=== PATIENT | female | born 1945 | race Caucasian/White ===

== ENCOUNTER 2018-06-08 21:08 | Emergency (ER) | payer OTHER, MEDICARE ==
[2018-06-08 22:00] LABS: BASO % 0.5 % (0.0-1.0); EOS # 0.1 10^3/uL (0.0-0.50); EOS % 1.4 % (0.0-3.0); HEMATOCRIT 38.6 % (36.0-47.0); HEMOGLOBIN 13.3 g/dl (12.0-15.5); IMMATURE GRANULOCYTE % 0.3 % (0-3.0); LYMPH # 2.4 10^3/uL (1.5-4.5); LYMPH % 27.9 % (24.0-44.0); MEAN CORPUSCULAR HEMOGLOBIN 27.3 pg (27.0-33.0); MEAN CORPUSCULAR HGB CONC 34.5 g/dl (32.0-36.5); MEAN CORPUSCULAR VOLUME 79.1 fl (80.0-96.0); MONO # 0.5 10^3/uL (0.0-0.8); MONO % 5.8 % (0.0-5.0); NEUTROPHILS # 5.5 10^3/uL (1.8-7.7); NEUTROPHILS % 64.1 % (36.0-66.0); PLATELET COUNT, AUTOMATED 224 10^3/uL (150-450); RED BLOOD COUNT 4.88 10^6/uL (4.00-5.40); RED CELL DISTRIBUTION WIDTH 13.1 % (11.5-14.5); WHITE BLOOD COUNT 8.6 10^3/uL (4.0-10.0)
[2018-06-08] MEDS: LABETALOL HCL 100 MG/20 ML VIAL IV (22:16)
[2018-06-08 22:29] LABS: ANION GAP 11 MEQ/L (8-16); BLOOD UREA NITROGEN 20 MG/DL (7-18); CALCIUM LEVEL 9.2 MG/DL (8.8-10.2); CARBON DIOXIDE LEVEL 29 MEQ/L (21-32); CHLORIDE LEVEL 99 MEQ/L (98-107); CPK CREATINE PHOSPHOKINASE 92 U/L (26-192); CREATININE FOR GFR 1.14 MG/DL (0.55-1.30); FREE T4 1.12 NG/DL (0.76-1.46); GLOMERULAR FILTRATION RATE 49.9 (>39); GLUCOSE, FASTING 290 MG/DL (70-100); MB/CK RELATIVE INDEX 1.63 (< OR =4); POTASSIUM SERUM 3.9 MEQ/L (3.5-5.1); SODIUM LEVEL 139 MEQ/L (136-145); TROPONIN I < 0.02 NG/ML (< 0.10)
[2018-06-08 23:56] LABS: APPEARANCE, URINE CLOUDY (CLEAR); BACTERIA, URINE AUTO NEGATIVE (NEGATIVE); BILIRUBIN, URINE AUTO NEGATIVE (NEGATIVE); BLOOD, URINE BLOOD NEGATIVE (NEGATIVE); COLOR, URINE AMBER (YELLOW); GLUCOSE, URINE (UA) AUTO 3+ mg/dL (NEGATIVE); KETONE, URINE AUTO 1+ mg/dL (NEGATIVE); LEUKOCYTE ESTERASE, URINE AUTO 1+ (NEGATIVE); MUCUS, URINE SMALL (NEGATIVE); NITRITE, URINE AUTO NEGATIVE (NEGATIVE); PROTEIN, URINE AUTO NEGATIVE (NEGATIVE); RBC, URINE AUTO 3 /HPF (0-3); SPECIFIC GRAVITY URINE AUTO 1.022 (1.002-1.035); SQUAMOUS EPITHELIAL CELL UR AU 1 /HPF (0-6); UROBILINOGEN, URINE AUTO 0.2 mg/dL (0.0-2.0); WBC, URINE AUTO 2 /HPF (0-3)
[2018-06-09] MEDS: LABETALOL 100 MG TAB PO (00:20)
== END 2018-06-09 00:25 | disposition home or self-care (01) ==
LOC: M ED 06-09 00:25
DX: I10 Essential (primary) hypertension (principal); E11.9 Type 2 diabetes mellitus without complications; Z79.84 Long term (current) use of oral hypoglycemic drugs; Z79.899 Other long term (current) drug therapy
CPT/HCPCS: 71046

== ENCOUNTER 2020-11-04 12:37 | Observation (INO) | payer OTHER ==
[~2020-11-04] VITALS: Ht 157.5 cm; Wt 90.4 kg
[~2020-11-04 12:37] MED LIST: ATOR1TAB21 PO; GLYB5TAB6 PO; HYDR-3490 PO; JANU100T PO; LABE100T4 PO; LEVO50TA5 PO; METF10004 PO; METO1TAB7 PO; PARO40TA2 PO; QUET50TA3 PO; QUIN1TAB3 PO
[2020-11-04] MEDS ORDERED: AMLO1TAB25 PO (12:54)
[2020-11-04 13:23] LABS: VENOUS BASE EXCESS 3.4 (-2.0-2.0); VENOUS HCO3 26.5 MEQ/L (23.0-27.0); VENOUS O2 SATURATION 96.6 % (60.0-80.0); VENOUS PARTIAL PRESSURE CO2 34.7 mmHg (38.0-50.0); VENOUS PARTIAL PRESSURE O2 83.2 mmHg (30.0-50.0); VENOUS STANDARD HCO3 27.5 MEQ/L; VENOUS TOTAL CO2 27.5 MEQ/L (24.0-28.0)
[2020-11-04 13:41] LABS: BASO % 0.1 % (0.0-1.0); EOS % 0.2 % (0.0-3.0); LYMPH # 1.1 10^3/uL (1.5-5.0); LYMPH % 11.2 % (24.0-44.0); MEAN CORPUSCULAR HEMOGLOBIN 25.2 pg (27.0-33.0); MEAN CORPUSCULAR HGB CONC 33.3 g/dl (32.0-36.5); MEAN CORPUSCULAR VOLUME 75.5 fl (80.0-96.0); MONO # 0.8 10^3/uL (0.0-0.8); MONO % 8.1 % (2.0-8.0); NEUTROPHILS # 7.7 10^3/uL (1.5-8.5); NEUTROPHILS % 79.8 % (36.0-66.0); PLATELET COUNT, AUTOMATED 286 10^3/uL (150-450); RED BLOOD COUNT 4.37 10^6/uL (4.00-5.40); WHITE BLOOD COUNT 9.6 10^3/uL (4.0-10.0)
--- NOTE | 2020-11-04 13:49 | REP ---
INDICATION: DYSPNEA/COUGH. COMPARISON: Comparison chest x-ray 06/08/2018. TECHNIQUE: Portable upright AP chest radiograph. FINDINGS: EKG monitoring electrodes are seen. There is chronic pleuroparenchymal thickening at the left base at the cardiac apex. This is unchanged. There is some chronic pleural thickening at the right base. There is increased alveolar density in the periphery of the upper lobes bilaterally question peripheral infiltrate/pneumonia. There are clips in right upper quadrant of the abdomen. Heart is not felt to be enlarged.. IMPRESSION: Bilateral upper lobe peripheral infiltrate suspected consistent with pneumonia. Question viral pneumonia.. <Electronically signed by Destin Woodward > 11/04/20 [id number]
[2020-11-04 14:07] LABS: ALBUMIN 3.3 GM/DL (3.2-5.2); ALT/SGPT 52 U/L (12-78); BILIRUBIN,DIRECT 0.4 MG/DL (0.0-0.2); BILIRUBIN,TOTAL 1.3 MG/DL (0.2-1.0); BLOOD UREA NITROGEN 18 MG/DL (7-18); CALCIUM LEVEL 9.1 MG/DL (8.8-10.2); CARBON DIOXIDE LEVEL 27 MEQ/L (21-32); CHLORIDE LEVEL 98 MEQ/L (98-107); CK-MB VALUE MASS 1.6 NG/ML (<3.6); CPK CREATINE PHOSPHOKINASE 113 U/L (26-192); CREATININE FOR GFR 0.91 MG/DL (0.55-1.30); GLOMERULAR FILTRATION RATE > 60.0 (>39); GLUCOSE, FASTING 125 MG/DL (70-100); MB/CK RELATIVE INDEX 1.42 (< OR =4); NT-PRO BNP 123 PG/ML (<125); POTASSIUM SERUM 3.3 MEQ/L (3.5-5.1); SODIUM LEVEL 134 MEQ/L (136-145); THYROXINE (T4) 9.2 UG/DL (4.5-12.0); TOTAL PROTEIN 6.8 GM/DL (6.4-8.2); TROPONIN I < 0.02 NG/ML (< 0.10)
[2020-11-04] MEDS ORDERED: NS 250 ML IV ONE (14:25)
[2020-11-04] MEDS ORDERED: ACETAMINOPHEN 325 MG TAB PO ONE (14:25)
[2020-11-04] MEDS: COMBIVENT RESPIMAT 100-20MCG INHALER 4GM INH SCH ×3 (14:42→15:05)
[2020-11-04] MEDS ORDERED: GLUCOSE 4GM CHEW TABLET PO PRN (15:30)
[2020-11-04] MEDS ORDERED: GLUCAGON INJ 1MG VIAL SC PRN (15:30)
[2020-11-04] MEDS ORDERED: DEXTROSE 50% 50 ML SYRINGE IV PRN (15:30)
[2020-11-04] MEDS ORDERED: ALBUTEROL 90 MCG/ACT 8GM HFA INHALER INH PRN (15:30)
[2020-11-04] MEDS ORDERED: ISOVUE-370 76% 100ML VIAL As Ordered ONE (15:43)
[2020-11-04] MEDS ORDERED: SERO50TA PO (15:53)
[2020-11-04] MEDS ORDERED: LABE100T4 PO (15:53)
[2020-11-04] MEDS ORDERED: HYDR50TAB PO (15:53)
[2020-11-04] MEDS ORDERED: LEVE1INJ5 SC (15:53)
--- NOTE | 2020-11-04 15:55 | HPEPDOC ---
General Date of Admission 11/04/20 Date of Service: November 04, 2020 Chief Complaint The patient is a 75-year-old female admitted with a reason for visit of Sob, Nausea. Source: Patient, RN/MD History of Present Illness 75-year-old female with past medical history of diabetes, hypertension, hypothyroid, anxiety, depression. Has been sick for 2 weeks with malaise, body aches, chills and shakiness .She was diagnosed with the COVID on October 23. , She was having increasing weakness and increasing shortness of breath and she felt that her heart was pounding when she was doing minimal exertion. She was also having persistent diarrhea about 4-5 times a day, so came to the emergency room for evaluation. In the ED she was found to have a temperature of 101. A chest x- ray was suggestive of bilateral upper lobe infiltrates, possible a pneumonia. ABG showed respiratory alkalosis. Patient was admitted for possible pneumonia. Home Medications Scheduled Amlodipine Besylate (Amlodipine Besylate) 10 Mg Tablet, 1 TAB PO DAILY, (Re ported) Glyburide (Glyburide) 5 Mg Tab, 5 MG PO BID, (Reported) Labetalol HCl (Labetalol HCl) 100 Mg Tab, 1 TAB PO BID Metformin HCl (Metformin HCl) 1,000 Mg Tab, 1,000 MG PO BID, (Reported) Miscellaneous Medications Atorvastatin Calcium (Atorvastatin Calcium) 20 Mg Tab, 20 MG PO, (Reported) Hydrochlorothiazide (Hydrochlorothiazide) 25 Mg Tab, 25 MG PO, (Reported) Levothyroxine Sodium (Levothyroxine Sodium) 50 Mcg Tab, 50 MCG PO, (Reported) Paroxetine HCl (Paroxetine HCl) 40 Mg Tab, 40 MG PO, (Reported) Quinapril Hcl (Quinapril HCl) 20 Mg Tab, 20 MG PO, (Reported) Sitagliptin Phosphate (Januvia) 100 Mg Tab, 100 MG PO, (Reported) Allergies Coded Allergies: No Known Allergies (Unverified , 06/08/18) Past Medical History Medical History DM, HTN, Obesity, Hypothyroid, Surgical History Cholecystectomy Family History Mother : DM , HTN, CAD Father : Kidney dis Brother : prostate ca, HTN, DM Sister : uterine ca, DM Social History * Smoker: Denies Alcohol: rarely A-FIB/CHADSVASC A-FIB History Current/History of A-Fib/PAF?: No Review of Systems Constitutional: Reports: Malaise, Weakness Eyes: Denies: Pain, Vision change ENT: Denies: Head Aches, Ear Pain, Dysphagia Skin: Denies: Rash, Lesions, Breakdown Pulmonary: Reports: Dyspnea; Denies: Cough Cardiovascular: Reports: Palpitations Gastrointestinal: Reports: Nausea, Diarrhea; Denies: Vomiting, Abdominal Pain Genitourinary: Denies: Dysuria, Frequency, Incontinence, Retention Physical Examination General Exam: Positive: Alert, Cooperative, No Acute Distress Eye Exam: Positive: PERRLA, Conjunctiva & lids normal, EOMI; Negative: Sclera icteric ENT Exam: Positive: Atraumatic, Mucous membr. moist/pink, Pharynx Normal Neck Exam: Positive: Supple; Negative: JVD, thyromegaly Chest Exam: Positive: Normal air movement, Other (bilateral crackes) Heart Exam: Positive: Rate Normal, Regular Rhythm, Normal S1, Normal S2; Negative: Murmurs, Rubs Telemetry: Positive: No significant arrhythmia Abdomen Exam: Positive: Normal bowel sounds, Soft; Negative: Tenderness, Hepatospenomegaly Extremity Exam: Negative: Clubbing, Cyanosis, Edema Vital Signs Vital Signs Date Time Temp Pulse Resp B/P (MAP) Pulse Ox O2 Delivery O2 Flow Rate FiO2 11/04/20 13:41 11/04/20 13:41 Room Air 11/04/20 12:38 101.0 74 20 92 Laboratory Data Labs 24H Laboratory Tests 2 11/04/20 13:01: Immature Granulocyte % (Auto) 0.6, Neutrophils (%) (Auto) 79.8H, Lymphocytes (%) (Auto) 11.2L, Monocytes (%) (Auto) 8.1H, Eosinophils (%) (Auto) 0.2, Basophils (%) (Auto) 0.1, Neutrophils # (Auto) 7.7, Lymphocytes # (Auto) 1.1L, Monocytes # (Auto) 0.8, Eosinophils # (Auto) 0.0, Basophils # (Auto) 0.0, Nucleated Red Blood Cells % (auto) 0.0, Anion Gap 9, Glomerular Filtration Rate > 60.0, Lactic Acid Level 1.7, Calcium Level 9.1, Total Bilirubin 1.3H, Direct Bilirubin 0.4H, Aspartate Amino Transf (AST/SGOT) 60H, Alanine Aminotransferase (ALT/SGPT) 52, Alkaline Phosphatase 60, Total Creatine Kinase 113, Creatine Kinase MB 1.6, Creatine Kinase MB Relative Index 1.42, Troponin I < 0.02, XV-Jnp-O-Type Natriuretic Peptide 123, Total Protein 6.8, Albumin 3.3, Albumin/Globulin Ratio 0.9L, Thyroid Stimulating Hormone (TSH) 2.310, Thyroxine (T4) 9.2 11/04/20 13:04: Blood Gas Bicarbonate Standard 27.5, Venous Blood pH 7.500H, Venous Blood Partial Pressure CO2 34.7L, Venous Blood Partial Pressure O2 83.2H, Venous Blood Total Carbon Dioxide 27.5, Venous Blood HCO3 26.5, Venous Blood Oxygen Saturation 96.6H, Venous Blood Base Excess 3.4H CBC/BMP Laboratory Tests 11/04/20 13:01 Microbiology Microbiology 11/04/20 Blood Culture, Received Pending Assessment/Plan 75-year-old female with past medical history of diabetes, hypertension, hypothyroid, anxiety, depression. Has been sick for 2 weeks with malaise, body aches, chills and shakiness .She was diagnosed with the COVID on October 23. , She was having increasing weakness and increasing shortness of breath and she felt that her heart was pounding when she was doing minimal exertion. She was also having persistent diarrhea about 4-5 times a day, so came to the emergency room for evaluation. In the ED she was found to have a temperature of 101. A chest x- ray was suggestive of bilateral upper lobe infiltrates, possible a pneumonia. ABG showed respiratory alkalosis. Patient was admitted for possible pneumonia. Covid pneumonia versus bacterial pneumonia Will check pro-calcitonin [place], start the patient on levofloxacin Patient is not hypoxic at present Oxygen as needed, albuterol when necessary Respiratory alkalosis and tachypnea on presentation Will get CT in November of the chest to rule out PE Diabetes Lispro per sliding scale Hold oral home diabetic medications FS AC and HS Hypothyroid Continue Synthroid Hypertension We'll continue to monitor and add home medications as needed Microcytic anemia Patient may have iron deficiency Hyperlipidemia Continue statin Plan / VTE VTE Prophylaxis Ordered?: Yes PAPA ALATORRE MD November 04, 2020 15:03
[2020-11-04] MEDS ORDERED: POTASSIUM CHLORIDE 10 MEQ SR TABLET PO ONE (16:00)
[2020-11-04] MEDS ORDERED: NS 500 ML IV ONE (16:00)
--- NOTE | 2020-11-04 16:34 | REP ---
INDICATION: pulmonary embolism COMPARISON: None. TECHNIQUE: CT angiography chest after the intravenous administration of 100 cc Isovue 370 attention pulmonary arteries. FINDINGS: There is excellent visualization of the pulmonary arterial vasculature. There are no focal filling defects present that would be considered consistent with acute pulmonary emboli. There no pleural or pericardial effusions. There is no mediastinal or hilar adenopathy. The imaged upper abdomen and imaged osseous structures are within normal limits. Evaluation of the lung escalante shows patchy bilateral airspace opacities with peripheral predominance. This CT height is significant nodule. There is respiratory motion artifact obscuring the detail. IMPRESSION: 1. There is no evidence of an acute pulmonary embolus. 2. Bilateral airspace opacities as described above suspicious for infectious etiology. Since are no priors comparison short interval follow-up is suggested. 3. Other findings and limitations as described above. <Electronically signed by Agustin Caicedo > 11/04/20 [id number]
[2020-11-04 16:47] LABS: C REACTIVE PROTEIN QUANTITATIV 8.29 MG/DL (0.00-0.30)
[2020-11-04] MEDS ORDERED: ACETAMINOPHEN TAB 650MG DOSE (2X325MG) PO PRN (16:55)
[2020-11-04] MEDS ORDERED: dexameTHASONE 20MG/5ML VIAL (J1100 PER 1MG) IV ONE (17:00)
[2020-11-04 17:18] LABS: INR 1.23; PROTHROMBIN TIME 15.8 SECONDS (12.5-14.3)
[2020-11-04 17:19] LABS: PARTIAL THROMBOPLASTIN TIME 31.2 SECONDS (24.2-38.5)
[2020-11-04 17:21] VITALS: BP 165/76
[2020-11-04] MEDS: HumaLOG INSULIN (NovoLOG) PER UNIT SC SCH ×2 (17:30→20:21)
[2020-11-04] MEDS: ASPIRIN 81MG ENTERIC TABLET PO SCH (17:54)
[2020-11-04] MEDS ORDERED: LevoFLOXacin 750 MG TABLET PO SCH ×2 (18:00)
[2020-11-04 19:28] VITALS: BP 148/67
--- NOTE | 2020-11-04 20:11 | ECGEPIP ---
[facility] - ED Test Date: 2020-11-04 Pat Name: JOHNNY VERDUZCO Department: Room: - Gender: Female [place]ip[place] Man: LR : 1945 Requested By: MUKESH Ramirez Order Number: [id number] Reading MD: Juan Manuel Valladares Measurements Intervals [place] Rate: 71 P: 29 RI: 158 QRS: -19 QRSD: 86 T: 67 QT: 422 QTc: 458 Interpretive Statements Normal sinus rhythm BASELINE ARTIFACT AFFECTS INTERPRETATION Electronically Signed on 11-04-2020 20:11:06 EDT by Juan Manuel Valladares
[2020-11-04] MEDS: LEVEMIR (INSULIN DETEMIR) 1 UNITS/0.01ML SC SCH (20:22)
[2020-11-04] MEDS: QUEtiapine FUMARATE 50MG TAB PO SCH (20:24)
[2020-11-04] MEDS: PANTOPRAZOLE 40MG TAB (PROTONIX) PO SCH (20:24)
[2020-11-04] MEDS: ALBUTEROL 90 MCG/ACT 8GM HFA INHALER INH SCH (20:28)
[2020-11-05 04:13] VITALS: BP_SYST 152; BP_SYST 160; BP_DIAS 59; BP_DIAS 72
[2020-11-05] MEDS: LEVOTHYROXINE 50MCG TABLET (0.05MG) PO SCH (05:33)
[2020-11-05] MEDS: ALBUTEROL 90 MCG/ACT 8GM HFA INHALER INH SCH ×3 (07:58→20:09)
[2020-11-05] MEDS: ASPIRIN 81MG ENTERIC TABLET PO SCH (08:16)
[2020-11-05] MEDS: LEVEMIR (INSULIN DETEMIR) 1 UNITS/0.01ML SC SCH (08:16)
[2020-11-05] MEDS: HumaLOG INSULIN (NovoLOG) PER UNIT SC SCH ×4 (08:17→21:05)
[2020-11-05 08:19] VITALS: BP 155/68
[2020-11-05 08:27] LABS: ALBUMIN 2.9 GM/DL (3.2-5.2); ALT/SGPT 49 U/L (12-78); BILIRUBIN,TOTAL 1.2 MG/DL (0.2-1.0); BLOOD UREA NITROGEN 18 MG/DL (7-18); CALCIUM LEVEL 8.8 MG/DL (8.8-10.2); CARBON DIOXIDE LEVEL 28 MEQ/L (21-32); CHLORIDE LEVEL 100 MEQ/L (98-107); CREATININE FOR GFR 0.88 MG/DL (0.55-1.30); GLOMERULAR FILTRATION RATE > 60.0 (>39); GLUCOSE, FASTING 298 MG/DL (70-100); POTASSIUM SERUM 4.1 MEQ/L (3.5-5.1); SODIUM LEVEL 136 MEQ/L (136-145); TOTAL PROTEIN 6.8 GM/DL (6.4-8.2)
[2020-11-05] MEDS: ENOXAPARIN 40MG/0.4ML SYRINGE (J1650 PER 10MG) SC SCH (12:06)
--- NOTE | 2020-11-05 14:24 | IPNPDOC ---
Subjective Date Seen The patient was seen on 11/05/20. Subjective Chief Complaint/HPI Feels a little better today. Patietn is desaturing on mild exertion needing 2 L of oxygen. Objective Physical Examination General Exam: Positive: Alert, Cooperative, No Acute Distress Eye Exam: Positive: PERRLA, Conjunctiva & lids normal, EOMI; Negative: Sclera icteric ENT Exam: Positive: Atraumatic, Mucous membr. moist/pink, Pharynx Normal Neck Exam: Positive: Supple; Negative: JVD, thyromegaly Chest Exam: Positive: Normal air movement, Other (bilateral crackes) Heart Exam: Positive: Rate Normal, Regular Rhythm, Normal S1, Normal S2; Negative: Murmurs, Rubs Telemetry: Positive: No significant arrhythmia Abdomen Exam: Positive: Normal bowel sounds, Soft; Negative: Tenderness, Hepatospenomegaly Extremity Exam: Negative: Clubbing, Cyanosis, Edema Assessment /Plan Assessment 75-year-old female with past medical history of diabetes, hypertension, hypothyroid, anxiety, depression. Has been sick for 2 weeks with malaise, body aches, chills and shakiness .She was diagnosed with the COVID on October 23. , She was having increasing weakness and increasing shortness of breath and she felt that her heart was pounding when she was doing minimal exertion. She was also having persistent diarrhea about 4-5 times a day, so came to the emergency room for evaluation. In the ED she was found to have a temperature of 101. A chest x- ray was suggestive of bilateral upper lobe infiltrates, possible a pneumonia. ABG showed respiratory alkalosis. Patient was admitted for possible pneumonia. Covid pneumonia versus bacterial pneumonia with hypoxia Pro-calcitonin not elevated will dc levofloxacin. Continue Dexamethasone. Oxygen as needed, albuterol when necessary incentive spirometry. Respiratory alkalosis and tachypnea on presentation No Pulmonary embolism in CT Chest. CT Evaluation of the lung escalante shows patchy bilateral airspace opacities with peripheral predominance. Diabetes Lispro per sliding scale, Levemir Hold oral home diabetic medications FS AC and HS Hypothyroid Continue Synthroid Hypertension We'll continue to monitor and add home medications as needed Microcytic anemia Patient may have iron deficiency Hyperlipidemia Continue statin Plan/VTE VTE Prophylaxis Ordered?: Yes VS, I&O, 24H, Fishbone Vital Signs/I&O Vital Signs Date Time Temp Pulse Resp B/P (MAP) Pulse Ox O2 Delivery O2 Flow Rate FiO2 11/05/20 08:19 99.5 90 18 155/68 (97) 96 Nasal Cannula 2.0 I&O- Last 24 Hours up to 6 AM 11/05/20 06:00 Intake Total 870 ml Output Total 200 ml Balance 670 ml Laboratory Data 24H LABS Laboratory Tests 2 11/04/20 15:56: Prothrombin Time 15.8H, Prothromb Time International Ratio 1.23, Activated Partial Thromboplast Time 31.2, Ferritin 218, C-Reactive Protein, Quantitative 8.29H, Procalcitonin 0.07 11/04/20 17:39: Bedside Glucose (Misc Panel) 69L 11/04/20 19:42: Bedside Glucose (Misc Panel) 148H 11/05/20 07:07: Bedside Glucose (Misc Panel) 302H 11/05/20 07:17: Anion Gap 8, Glomerular Filtration Rate > 60.0, Calcium Level 8.8, Total Bilirubin 1.2H, Aspartate Amino Transf (AST/SGOT) 45H, Alanine Aminotransferase (ALT/SGPT) 49, Alkaline Phosphatase 61, Total Protein 6.8, Albumin 2.9L, Albumin/Globulin Ratio 0.7L 11/05/20 11:45: Bedside Glucose (Misc Panel) 294H CBC/BMP Laboratory Tests 11/05/20 07:17 Microbiology Microbiology 11/04/20 Blood Culture, Received Pending 11/04/20 Blood Culture - Preliminary, Resulted No growth after 24 hours . All specim... PAPA ALATORRE MD November 05, 2020 14:24
[2020-11-05 14:40] VITALS: BP 151/59
[2020-11-05] MEDS: PARoxetine 20MG TABLET PO SCH (14:55)
[2020-11-05] MEDS: dexameTHASONE 20MG/5ML VIAL (J1100 PER 1MG) IV SCH (14:56)
[2020-11-05 15:45] VITALS: BP 157/57
[2020-11-05 20:54] VITALS: BP 173/74
[2020-11-05] MEDS ORDERED: LEVEMIR (INSULIN DETEMIR) 1 UNITS/0.01ML SC SCH (21:00)
[2020-11-05] MEDS: PANTOPRAZOLE 40MG TAB (PROTONIX) PO SCH (21:04)
[2020-11-05] MEDS: QUEtiapine FUMARATE 50MG TAB PO SCH (21:04)
[2020-11-05 21:15] VITALS: BP 160/68
[2020-11-06 05:32] VITALS: BP 154/74
[2020-11-06] MEDS: LEVOTHYROXINE 50MCG TABLET (0.05MG) PO SCH (05:35)
[2020-11-06] MEDS: HumaLOG INSULIN (NovoLOG) PER UNIT SC SCH ×2 (07:30→11:20)
[2020-11-06] MEDS: LEVEMIR (INSULIN DETEMIR) 1 UNITS/0.01ML SC ONE ×2 (08:30→11:30)
[2020-11-06] MEDS: dexameTHASONE 20MG/5ML VIAL (J1100 PER 1MG) IV SCH (08:31)
[2020-11-06] MEDS: ASPIRIN 81MG ENTERIC TABLET PO SCH (08:31)
[2020-11-06 08:32] VITALS: BP 157/74
[2020-11-06] MEDS ORDERED: DEXA6TAB PO (08:32)
[2020-11-06] MEDS: ENOXAPARIN 40MG/0.4ML SYRINGE (J1650 PER 10MG) SC SCH (08:32)
[2020-11-06] MEDS ORDERED: ASPI-551 PO (08:32)
[2020-11-06] MEDS: ALBUTEROL 90 MCG/ACT 8GM HFA INHALER INH SCH (08:35)
[2020-11-06] MEDS ORDERED: SITagliptin 50 MG TAB (JANUVIA) PO SCH (09:00)
[2020-11-06] MEDS ORDERED: LABETALOL 100MG TAB PO SCH (09:00)
[2020-11-06 09:42] LABS: BASO % 0.2 % (0.0-1.0); EOS % 0.1 % (0.0-3.0); HEMATOCRIT 35.5 % (36.0-47.0); HEMOGLOBIN 11.6 g/dl (12.0-15.5); LYMPH # 1.2 10^3/uL (1.5-5.0); LYMPH % 10.8 % (24.0-44.0); MEAN CORPUSCULAR HEMOGLOBIN 25.1 pg (27.0-33.0); MEAN CORPUSCULAR HGB CONC 32.7 g/dl (32.0-36.5); MEAN CORPUSCULAR VOLUME 76.7 fl (80.0-96.0); MONO # 0.8 10^3/uL (0.0-0.8); NEUTROPHILS # 9.1 10^3/uL (1.5-8.5); NEUTROPHILS % 80.9 % (36.0-66.0); PLATELET COUNT, AUTOMATED 377 10^3/uL (150-450); RED BLOOD COUNT 4.63 10^6/uL (4.00-5.40); WHITE BLOOD COUNT 11.2 10^3/uL (4.0-10.0)
[2020-11-06 09:54] LABS: INR 1.21; PROTHROMBIN TIME 15.6 SECONDS (12.5-14.3)
[2020-11-06 09:55] LABS: PARTIAL THROMBOPLASTIN TIME 30.3 SECONDS (24.2-38.5)
[2020-11-06 10:15] LABS: ALBUMIN 3.1 GM/DL (3.2-5.2); ALT/SGPT 52 U/L (12-78); BLOOD UREA NITROGEN 16 MG/DL (7-18); CARBON DIOXIDE LEVEL 26 MEQ/L (21-32); CHLORIDE LEVEL 104 MEQ/L (98-107); CPK CREATINE PHOSPHOKINASE 104 U/L (26-192); CREATININE FOR GFR 0.91 MG/DL (0.55-1.30); GLOMERULAR FILTRATION RATE > 60.0 (>39); GLUCOSE, FASTING 238 MG/DL (70-100); LDH LACTATE DEHYDROGENASE 329 U/L (84-246); SODIUM LEVEL 137 MEQ/L (136-145); TOTAL PROTEIN 6.9 GM/DL (6.4-8.2)
[2020-11-06] MEDS ORDERED: VENTAER INH (12:18)
--- NOTE | 2020-11-06 12:22 | IPNPDOC ---
Subjective Date Seen The patient was seen on 11/06/20. Subjective Chief Complaint/HPI Feels well. Has been off oxygen . Has worked with PT with no desaturations and no dyspnea. Objective Physical Examination General Exam: Positive: Alert, Cooperative, No Acute Distress Eye Exam: Positive: PERRLA, Conjunctiva & lids normal, EOMI; Negative: Sclera icteric ENT Exam: Positive: Atraumatic, Mucous membr. moist/pink, Pharynx Normal Neck Exam: Positive: Supple; Negative: JVD, thyromegaly Chest Exam: Positive: Normal air movement, Other (bilateral crackes) Heart Exam: Positive: Rate Normal, Regular Rhythm, Normal S1, Normal S2; Negative: Murmurs, Rubs Telemetry: Positive: No significant arrhythmia Abdomen Exam: Positive: Normal bowel sounds, Soft; Negative: Tenderness, Hepatospenomegaly Extremity Exam: Negative: Clubbing, Cyanosis, Edema Assessment /Plan Assessment 75-year-old female with past medical history of diabetes, hypertension, hypothyroid, anxiety, depression. Has been sick for 2 weeks with malaise, body aches, chills and shakiness .She was diagnosed with the COVID on October 23. , She was having increasing weakness and increasing shortness of breath and she felt that her heart was pounding when she was doing minimal exertion. She was also having persistent diarrhea about 4-5 times a day, so came to the emergency room for evaluation. In the ED she was found to have a temperature of 101. A chest x- ray was suggestive of bilateral upper lobe infiltrates, possible a pneumonia. ABG showed respiratory alkalosis. Patient was admitted for possible pneumonia. Covid pneumonia with hypoxia Pro-calcitonin not elevated Continue Dexamethasone. incentive spirometry. Respiratory alkalosis and tachypnea on presentation No Pulmonary embolism in CT Chest. CT Evaluation of the lung escalante shows patchy bilateral airspace opacities with peripheral predominance. Diabetes restart home medications of metformin, glyburide, januvia and long acting insulin. Hypothyroid Continue Synthroid Hypertension will restart home meds of labetelol, HCTZ, amlodipine and quinapril. Microcytic anemia Patient may have iron deficiency follow up with PMD Hyperlipidemia Continue statin Anxiety continue paroxetine and quetiapine. Dispo: Home with services. Plan/VTE VTE Prophylaxis Ordered?: Yes VS, I&O, 24H, Fishbone Vital Signs/I&O Vital Signs Date Time Temp Pulse Resp B/P (MAP) Pulse Ox O2 Delivery O2 Flow Rate FiO2 11/06/20 08:32 82 157/74 11/06/20 05:32 97.9 20 95 Nasal Cannula 1.0 I&O- Last 24 Hours up to 6 AM 11/06/20 06:00 Intake Total 1040 ml Balance 1040 ml Laboratory Data 24H LABS Laboratory Tests 2 11/05/20 15:49: Bedside Glucose (Misc Panel) 217H 11/05/20 16:54: Bedside Glucose (Misc Panel) 230H 11/05/20 20:54: Bedside Glucose (Misc Panel) 288H 11/06/20 05:34: Bedside Glucose (Misc Panel) 253H 11/06/20 09:15: Immature Granulocyte % (Auto) 1.0, Neutrophils (%) (Auto) 80.9H, Lymphocytes (%) (Auto) 10.8L, Monocytes (%) (Auto) 7.0, Eosinophils (%) (Auto) 0.1, Basophils (%) (Auto) 0.2, Neutrophils # (Auto) 9.1H, Lymphocytes # (Auto) 1.2L, Monocytes # (Auto) 0.8, Eosinophils # (Auto) 0.0, Basophils # (Auto) 0.0, Nucleated Red Blood Cells % (auto) 0.0, Prothrombin Time 15.6H, Prothromb Time International Ratio 1.21, Activated Partial Thromboplast Time 30.3, Anion Gap 7L, Glomerular Filtration Rate > 60.0, Calcium Level 9.0, Total Bilirubin 1.0, Aspartate Amino Transf (AST/SGOT) 43H, Alanine Aminotransferase (ALT/SGPT) 52, Alkaline Phosphatase 64, Lactate Dehydrogenase 329H, Total Creatine Kinase 104, C- Reactive Protein, Quantitative 4.50H, Total Protein 6.9, Albumin 3.1L, Albumin/Globulin Ratio 0.8L 11/06/20 11:29: Bedside Glucose (Misc Panel) 435H CBC/BMP Laboratory Tests 11/06/20 09:15 Microbiology Microbiology 11/04/20 Blood Culture - Preliminary, Resulted No growth after 24 hours . All specim... 11/04/20 Blood Culture - Preliminary, Resulted No growth after 24 hours . All specim... PAPA ALATORRE MD November 06, 2020 12:22
[2020-11-06] MEDS: PARoxetine 20MG TABLET PO SCH (14:05)
== END 2020-11-06 14:15 | disposition home health service (06) ==
LOC: M ED 12:37 → M ED INP 15:30 → ENRESERV 15:46 → M 4MAIN 17:15
PROVIDERS: ADMIT Internal Medicine Nephrology; ATTEND Internal Medicine Nephrology
DX: U07.1 COVID-19 (principal); J12.82 Pneumonia due to coronavirus disease 2019; R09.02 Hypoxemia; E87.3 Alkalosis; R06.82 Tachypnea, not elsewhere classified; R19.7 Diarrhea, unspecified; E11.9 Type 2 diabetes mellitus without complications; E03.9 Hypothyroidism, unspecified; I10 Essential (primary) hypertension; D50.9 Iron deficiency anemia, unspecified; E78.5 Hyperlipidemia, unspecified; F41.9 Anxiety disorder, unspecified; E66.9 Obesity, unspecified; Z79.899 Other long term (current) drug therapy; Z79.84 Long term (current) use of oral hypoglycemic drugs
CPT/HCPCS: 36415; 71045; 71275; 80048; 80053; 80076; 82550; 82553; 82728; 82803; 83605; 83615; 83880; 84145; 84436; 84443; 84484; 85025; 85610; 85730; 86140; 87040; 93005; 93041; 94664; 96361; 96372; 96374; 96376; 97161; 97530; 99285; G0378; J1100; J1650; Q9967

== ENCOUNTER 2022-06-30 11:44 | Inpatient (IN) | payer MEDICARE, OTHER ==
[~2022-06-30] VITALS: Ht 157.5 cm; Wt 94.5 kg
[~2022-06-30 11:44] MED LIST changes: +AMLO1TAB25 PO; +ASPI-551 PO; +DEXA6TAB PO; +HYDR50TAB PO; -LABE100T4 PO; +LABE100T6 PO; +LEVE1INJ5 SC; -QUET50TA3 PO; +QUET50TA4 PO; +SERO50TA PO; +VENTAER INH
[2022-06-30 13:22] LABS: BASO % 0.1 % (0.0-1.0); HEMATOCRIT 39.2 % (36.0-47.0); HEMOGLOBIN 12.7 g/dl (12.0-15.5); LYMPH # 0.6 10^3/uL (1.5-5.0); LYMPH % 3.3 % (24.0-44.0); MEAN CORPUSCULAR HEMOGLOBIN 24.8 pg (27.0-33.0); MEAN CORPUSCULAR HGB CONC 32.4 g/dl (32.0-36.5); MEAN CORPUSCULAR VOLUME 76.6 fl (80.0-96.0); MONO % 8.2 % (2.0-8.0); NEUTROPHILS # 16.9 10^3/uL (1.5-8.5); PLATELET COUNT, AUTOMATED 292 10^3/uL (150-450); RED BLOOD COUNT 5.12 10^6/uL (4.00-5.40); WHITE BLOOD COUNT 19.2 10^3/uL (4.0-10.0)
[2022-06-30 13:48] LABS: ALBUMIN 3.2 G/DL (3.2-5.2); BILIRUBIN,DIRECT 0.6 MG/DL (<0.4); BILIRUBIN,TOTAL 1.5 MG/DL (0.3-1.2); CALCIUM LEVEL 9.3 MG/DL (8.3-10.6); CREATININE FOR GFR 1.04 MG/DL (0.55-1.30); GLOMERULAR FILTRATION RATE 54.8 (>39); POTASSIUM SERUM 3.9 MMOL/L (3.5-5.1); TOTAL PROTEIN 7.2 G/DL (5.7-8.2)
[2022-06-30 13:56] LABS: MONO # 1.6 10^3/uL (0.0-0.8)
[2022-06-30 14:01] LABS: MB/CK RELATIVE INDEX 0.68 (< OR =4)
[2022-06-30] MEDS ORDERED: ACETAMINOPHEN 325 MG TAB PO ONE (16:00)
[2022-06-30 16:48] LABS: RSV AMPLIFICATION NEGATIVE (NEGATIVE)
[2022-06-30] MEDS ORDERED: NS 2,840 ML in IV 1 EA IV ONE (17:15)
[2022-06-30] MEDS ORDERED: PIPERACILLIN/TAZOBACTAM SOD 4.5 GM in D5W MINI-BAG PLUS 50 ML IV ONE (17:15)
[2022-06-30] MEDS ORDERED: ISOVUE-370 76% 100ML VIAL As Ordered ONE (18:06)
[2022-06-30 18:38] LABS: FREE T4 1.3 NG/DL (0.89-1.76); THYROID STIMULATING HORMONE 0.729 uIU/ML (0.55-4.78)
[2022-06-30 18:47] LABS: CK-MB VALUE MASS 7.1 NG/ML (<3.6); MB/CK RELATIVE INDEX 0.5 (< OR =4)
[2022-06-30] MEDS ORDERED: AZITHROMYCIN 250MG TABLET PO ONE (19:15)
[2022-06-30] MEDS ORDERED: cefTRIAXone SOD 1 GM in D5W MINI-BAG PLUS 50 ML IV ONE (19:15)
[2022-06-30] MEDS ORDERED: ASPIRIN 81MG CHEW TABLET PO ONE (19:25)
[2022-06-30] MEDS ORDERED: JARD1TAB3 PO (19:28)
[2022-06-30] MEDS ORDERED: LISI20TA33 PO (19:28)
[2022-06-30] MEDS ORDERED: LEVO75TA4 PO (19:28)
[2022-06-30] MEDS ORDERED: HYDR-3363 PO ×2 (19:28)
[2022-06-30] MEDS ORDERED: HOME MED LIST COMPLETE! XX SCH (20:05)
[2022-06-30] MEDS ORDERED: GLUCOSE 4GM CHEW TABLET PO PRN (21:10)
[2022-06-30] MEDS ORDERED: DEXTROSE 50% 50ML SYRINGE IV PRN (21:10)
[2022-06-30] MEDS ORDERED: GLUCAGON INJ 1MG VIAL SC PRN (21:10)
[2022-06-30 22:06] LABS: ALBUMIN 2.8 G/DL (3.2-5.2); BILIRUBIN,TOTAL 1.2 MG/DL (0.3-1.2); CALCIUM LEVEL 8.7 MG/DL (8.3-10.6); CREATININE FOR GFR 1.07 MG/DL (0.55-1.30); GLOMERULAR FILTRATION RATE 53.1 (>39); POTASSIUM SERUM 4.2 MMOL/L (3.5-5.1); TOTAL PROTEIN 6.6 G/DL (5.7-8.2)
[2022-06-30] MEDS: QUEtiapine FUMARATE 50MG TAB PO SCH (22:08)
[2022-06-30] MEDS: LABETALOL 100MG TAB PO SCH (22:08)
[2022-06-30] MEDS: hydrOXYzine 50 MG TAB PO SCH (22:08)
[2022-06-30 22:50] VITALS: BP 114/55
[2022-06-30] MEDS: LEVEMIR (INSULIN DETEMIR) 1 UNITS/0.01ML SC SCH (23:23)
[2022-07-01] MEDS: NS 1,000 ML IV SCH ×3 (01:56→21:37)
[2022-07-01 04:48] VITALS: BP 137/63
[2022-07-01] MEDS ORDERED: ACETAMINOPHEN 325MG/10.15ML UDC GT PRN (05:35)
[2022-07-01 05:44] LABS: BASO % 0.1 % (0.0-1.0); HEMATOCRIT 34.2 % (36.0-47.0); HEMOGLOBIN 11.2 g/dl (12.0-15.5); LYMPH # 0.7 10^3/uL (1.5-5.0); LYMPH % 4.1 % (24.0-44.0); MEAN CORPUSCULAR HEMOGLOBIN 25.3 pg (27.0-33.0); MEAN CORPUSCULAR HGB CONC 32.7 g/dl (32.0-36.5); MEAN CORPUSCULAR VOLUME 77.4 fl (80.0-96.0); MONO # 1.4 10^3/uL (0.0-0.8); MONO % 8.6 % (2.0-8.0); NEUTROPHILS # 13.8 10^3/uL (1.5-8.5); NEUTROPHILS % 86.5 % (36.0-66.0); PLATELET COUNT, AUTOMATED 256 10^3/uL (150-450); RED BLOOD COUNT 4.42 10^6/uL (4.00-5.40)
[2022-07-01] MEDS ORDERED: ACETAMINOPHEN 325MG/10.15ML UDC PO PRN (05:50)
[2022-07-01] MEDS: LEVOTHYROXINE 75MCG TABLET (0.075MG) PO SCH (05:56)
[2022-07-01] MEDS ORDERED: HEPARIN SOD (PORCINE) 5000UNITS/ML 1ML VIAL/SYRINGE SC SCH (06:00)
[2022-07-01 06:10] LABS: VITAMIN B12 LEVEL 1159 PG/ML (211-911)
[2022-07-01 06:11] LABS: FOLATE > 24.00 NG/ML (>5.4)
[2022-07-01 06:14] LABS: ALBUMIN 2.4 G/DL (3.2-5.2); ALKALINE PHOSPHATASE 80 U/L (46-116); ALT/SGPT 84 U/L (7.0-40); AST/SGOT 151 U/L (<34); BILIRUBIN,TOTAL 0.8 MG/DL (0.3-1.2); BLOOD UREA NITROGEN 20 MG/DL (9-23); CALCIUM LEVEL 7.8 MG/DL (8.3-10.6); CARBON DIOXIDE LEVEL 22 MMOL/L (20-31); CHLORIDE LEVEL 100 MMOL/L (98-107); CREATININE FOR GFR 0.93 MG/DL (0.55-1.30); GLOMERULAR FILTRATION RATE > 60.0 (>39); GLUCOSE, FASTING 74 MG/DL (74-106); POTASSIUM SERUM 3.4 MMOL/L (3.5-5.1); SODIUM LEVEL 133 MMOL/L (136-145); TOTAL PROTEIN 5.5 G/DL (5.7-8.2)
[2022-07-01] MEDS: INSULIN LISPRO (NovoLOG) PER UNIT SC SCH ×4 (07:30→21:00)
[2022-07-01 07:45] VITALS: BP 149/65
[2022-07-01] MEDS ORDERED: POTASSIUM CHLORIDE 10MEQ SR TABLET PO ONE (07:45)
[2022-07-01] MEDS: LEVEMIR (INSULIN DETEMIR) 1 UNITS/0.01ML SC SCH (08:02)
[2022-07-01 08:27] LABS: INR 1.2; PROTHROMBIN TIME 15.5 SECONDS (12.5-14.5)
[2022-07-01 08:28] LABS: PARTIAL THROMBOPLASTIN TIME 30.1 SECONDS (24.8-34.2)
[2022-07-01] MEDS ORDERED: LEVEMIR (INSULIN DETEMIR) 1 UNITS/0.01ML SC SCH ×2 (09:00→21:00)
[2022-07-01] MEDS ORDERED: SITagliptin 50 MG TAB (JANUVIA) PO SCH (09:00)
[2022-07-01] MEDS: QUINAPRIL 20 MG TAB PO SCH (09:08)
[2022-07-01] MEDS: PARoxetine 20MG TABLET PO SCH (09:08)
[2022-07-01] MEDS: DOXYCYCLINE HYCLATE 100MG TABLET PO SCH ×2 (09:08→21:36)
[2022-07-01] MEDS: LABETALOL 100MG TAB PO SCH ×2 (09:09→21:39)
[2022-07-01 12:00] VITALS: BP 136/60
[2022-07-01] MEDS ORDERED: AZITHROMYCIN 250MG TABLET PO SCH (12:00)
[2022-07-01] MEDS ORDERED: LEVALBUTEROL 1.25MG 0.5ML CONCENTRATE NEB NEB PRN (13:20)
[2022-07-01] MEDS: ENOXAPARIN 40MG/0.4ML SYRINGE (J1650 PER 10MG) SC SCH (14:03)
[2022-07-01 14:12] LABS: CPK CREATINE PHOSPHOKINASE 878 U/L (34-145)
[2022-07-01 16:00] VITALS: BP 151/67
[2022-07-01] MEDS ORDERED: cefTRIAXone SOD 1 GM in D5W MINI-BAG PLUS 50 ML IV SCH (18:00)
[2022-07-01 18:05] VITALS: BP 147/66
[2022-07-01] MEDS: LEVALBUTEROL 1.25MG 0.5ML CONCENTRATE NEB NEB SCH (19:39)
[2022-07-01] MEDS ORDERED: ATORVASTATIN 20 MG TAB PO SCH (21:00)
[2022-07-01 21:30] VITALS: BP 149/84
[2022-07-01] MEDS: QUEtiapine FUMARATE 50MG TAB PO SCH (21:36)
[2022-07-01] MEDS: hydrOXYzine 50 MG TAB PO SCH (21:36)
[2022-07-02 00:16] VITALS: O2SAT 92
[2022-07-02 05:00] VITALS: BP 141/62
[2022-07-02] MEDS: LEVOTHYROXINE 75MCG TABLET (0.075MG) PO SCH (06:14)
[2022-07-02 06:31] LABS: BASO % 0.2 % (0.0-1.0); EOS # 0.1 10^3/uL (0.0-0.5); EOS % 0.4 % (0.0-3.0); HEMATOCRIT 31.3 % (36.0-47.0); HEMOGLOBIN 10.4 g/dl (12.0-15.5); LYMPH # 1.1 10^3/uL (1.5-5.0); LYMPH % 7.9 % (24.0-44.0); MEAN CORPUSCULAR HEMOGLOBIN 25.6 pg (27.0-33.0); MEAN CORPUSCULAR HGB CONC 33.2 g/dl (32.0-36.5); MEAN CORPUSCULAR VOLUME 76.9 fl (80.0-96.0); MONO # 1.2 10^3/uL (0.0-0.8); MONO % 8.2 % (2.0-8.0); NEUTROPHILS # 11.8 10^3/uL (1.5-8.5); PLATELET COUNT, AUTOMATED 254 10^3/uL (150-450); RED BLOOD COUNT 4.07 10^6/uL (4.00-5.40); WHITE BLOOD COUNT 14.4 10^3/uL (4.0-10.0)
[2022-07-02 07:11] LABS: ALBUMIN 2.1 G/DL (3.2-5.2); ALKALINE PHOSPHATASE 130 U/L (46-116); ALT/SGPT 427 U/L (7.0-40); AST/SGOT 713 U/L (<34); BILIRUBIN,TOTAL 0.9 MG/DL (0.3-1.2); BLOOD UREA NITROGEN 14 MG/DL (9-23); CALCIUM LEVEL 7.5 MG/DL (8.3-10.6); CARBON DIOXIDE LEVEL 23 MMOL/L (20-31); CHLORIDE LEVEL 105 MMOL/L (98-107); CREATININE FOR GFR 0.82 MG/DL (0.55-1.30); GLOMERULAR FILTRATION RATE > 60.0 (>39); GLUCOSE, FASTING 84 MG/DL (74-106); POTASSIUM SERUM 3.3 MMOL/L (3.5-5.1); SODIUM LEVEL 137 MMOL/L (136-145)
[2022-07-02] MEDS: INSULIN LISPRO (NovoLOG) PER UNIT SC SCH ×4 (07:30→21:00)
[2022-07-02] MEDS ORDERED: LevoFLOXacin IV 500 MG in IV 1 EA IV ONE (07:40)
[2022-07-02 08:24] VITALS: O2SAT 93
[2022-07-02] MEDS: LEVALBUTEROL 1.25MG 0.5ML CONCENTRATE NEB NEB SCH ×2 (08:24→20:14)
[2022-07-02] MEDS: LevoFLOXacin 750 MG TABLET PO SCH (08:44)
[2022-07-02] MEDS: ENOXAPARIN 40MG/0.4ML SYRINGE (J1650 PER 10MG) SC SCH (08:44)
[2022-07-02] MEDS: PARoxetine 20MG TABLET PO SCH (08:44)
[2022-07-02] MEDS: QUINAPRIL 20 MG TAB PO SCH (08:46)
[2022-07-02] MEDS: LABETALOL 100MG TAB PO SCH ×2 (08:47→21:34)
[2022-07-02] MEDS: NS 1,000 ML IV SCH ×2 (08:47→17:24)
[2022-07-02] MEDS ORDERED: LEVEMIR (INSULIN DETEMIR) 1 UNITS/0.01ML SC SCH ×2 (09:00→21:00)
[2022-07-02 09:42] LABS: HEPATITIS B SURFACE ANTIGEN NEGATIVE (NEGATIVE)
[2022-07-02 10:07] LABS: HEPATITIS B CORE ANTIBODY IGM NEGATIVE (NEGATIVE); HEPATITIS C VIRUS ABY INDEX 0.1 INDEX (<0.8)
[2022-07-02 11:40] VITALS: O2SAT 94
[2022-07-02 14:00] VITALS: BP 149/59
[2022-07-02] MEDS ORDERED: POTASSIUM CHLORIDE 10MEQ SR TABLET PO ONE ×2 (17:00→19:00)
[2022-07-02] MEDS: LORazepam 0.5 MG TAB PO PRN (17:22)
[2022-07-02 18:14] LABS: ALBUMIN 2.3 G/DL (3.2-5.2); ALKALINE PHOSPHATASE 165 U/L (46-116); ALT/SGPT 418 U/L (7.0-40); AST/SGOT 594 U/L (<34); BLOOD UREA NITROGEN 15 MG/DL (9-23); CALCIUM LEVEL 7.8 MG/DL (8.3-10.6); CARBON DIOXIDE LEVEL 21 MMOL/L (20-31); CHLORIDE LEVEL 102 MMOL/L (98-107); CREATININE FOR GFR 0.85 MG/DL (0.55-1.30); GLOMERULAR FILTRATION RATE > 60.0 (>39); GLUCOSE, FASTING 190 MG/DL (74-106); POTASSIUM SERUM 3.4 MMOL/L (3.5-5.1); SODIUM LEVEL 135 MMOL/L (136-145); TOTAL PROTEIN 5.9 G/DL (5.7-8.2)
[2022-07-02 21:00] VITALS: BP 151/62
[2022-07-02] MEDS: QUEtiapine FUMARATE 50MG TAB PO SCH (21:34)
[2022-07-03 00:21] VITALS: O2SAT 93
[2022-07-03] MEDS: NS 1,000 ML IV SCH ×3 (02:02→22:25)
[2022-07-03 05:10] VITALS: BP 148/63
[2022-07-03] MEDS: LevoFLOXacin 750 MG TABLET PO SCH (06:03)
[2022-07-03] MEDS: LEVOTHYROXINE 75MCG TABLET (0.075MG) PO SCH (06:03)
[2022-07-03 06:08] LABS: BASO # 0.1 10^3/uL (0.0-0.2); BASO % 0.4 % (0.0-1.0); EOS # 0.1 10^3/uL (0.0-0.5); EOS % 0.9 % (0.0-3.0); HEMATOCRIT 31.8 % (36.0-47.0); HEMOGLOBIN 10.4 g/dl (12.0-15.5); LYMPH # 1.1 10^3/uL (1.5-5.0); LYMPH % 7.8 % (24.0-44.0); MEAN CORPUSCULAR HEMOGLOBIN 24.9 pg (27.0-33.0); MEAN CORPUSCULAR HGB CONC 32.7 g/dl (32.0-36.5); MEAN CORPUSCULAR VOLUME 76.3 fl (80.0-96.0); MONO # 1.2 10^3/uL (0.0-0.8); MONO % 8.6 % (2.0-8.0); NEUTROPHILS # 11.1 10^3/uL (1.5-8.5); NEUTROPHILS % 77.7 % (36.0-66.0); PLATELET COUNT, AUTOMATED 288 10^3/uL (150-450); RED BLOOD COUNT 4.17 10^6/uL (4.00-5.40); WHITE BLOOD COUNT 14.3 10^3/uL (4.0-10.0)
[2022-07-03 06:45] LABS: ALBUMIN 2.1 G/DL (3.2-5.2); ALKALINE PHOSPHATASE 125 U/L (46-116); ALT/SGPT 296 U/L (7.0-40); AST/SGOT 302 U/L (<34); BILIRUBIN,TOTAL 0.9 MG/DL (0.3-1.2); BLOOD UREA NITROGEN 11 MG/DL (9-23); CALCIUM LEVEL 7.7 MG/DL (8.3-10.6); CARBON DIOXIDE LEVEL 25 MMOL/L (20-31); CHLORIDE LEVEL 104 MMOL/L (98-107); CREATININE FOR GFR 0.76 MG/DL (0.55-1.30); GLOMERULAR FILTRATION RATE > 60.0 (>39); GLUCOSE, FASTING 104 MG/DL (74-106); POTASSIUM SERUM 3.2 MMOL/L (3.5-5.1); SODIUM LEVEL 139 MMOL/L (136-145)
[2022-07-03 08:33] VITALS: O2SAT 95
[2022-07-03] MEDS: LEVALBUTEROL 1.25MG 0.5ML CONCENTRATE NEB NEB SCH ×2 (08:34→20:13)
[2022-07-03 09:00] VITALS: O2SAT 96
[2022-07-03] MEDS ORDERED: LevoFLOXacin IV 250 MG in IV 1 EA IV SCH (09:00)
[2022-07-03] MEDS: INSULIN LISPRO (NovoLOG) PER UNIT SC SCH ×4 (09:11→21:00)
[2022-07-03] MEDS: QUINAPRIL 20 MG TAB PO SCH (09:12)
[2022-07-03] MEDS: LABETALOL 100MG TAB PO SCH ×2 (09:12→20:15)
[2022-07-03] MEDS: LACTOBACILLUS ACIDOPHILUS CAP (BACID) PO SCH ×2 (09:13→17:07)
[2022-07-03] MEDS: PARoxetine 20MG TABLET PO SCH (09:13)
[2022-07-03] MEDS: ENOXAPARIN 40MG/0.4ML SYRINGE (J1650 PER 10MG) SC SCH (09:13)
[2022-07-03] MEDS: POTASSIUM CHLORIDE 10MEQ SR TABLET PO SCH (09:13)
[2022-07-03] MEDS: LEVEMIR (INSULIN DETEMIR) 1 UNITS/0.01ML SC SCH ×2 (09:14→21:39)
[2022-07-03] MEDS ORDERED: POTASSIUM CHLORIDE 10MEQ SR TABLET PO ONE (11:00)
[2022-07-03] MEDS: LORazepam 0.5 MG TAB PO PRN (17:07)
[2022-07-03] MEDS: QUEtiapine FUMARATE 50MG TAB PO SCH (20:14)
[2022-07-03] MEDS: hydrOXYzine 50 MG TAB PO SCH (20:14)
[2022-07-03 20:15] VITALS: BP 144/64
[2022-07-03 21:15] VITALS: BP 139/61
[2022-07-04] MEDS: LevoFLOXacin 750 MG TABLET PO SCH (05:28)
[2022-07-04] MEDS: LEVOTHYROXINE 75MCG TABLET (0.075MG) PO SCH (05:28)
[2022-07-04 06:00] VITALS: BP 137/64
[2022-07-04 06:28] LABS: HEMATOCRIT 32.6 % (36.0-47.0); HEMOGLOBIN 10.5 g/dl (12.0-15.5); MEAN CORPUSCULAR HEMOGLOBIN 25.1 pg (27.0-33.0); MEAN CORPUSCULAR HGB CONC 32.2 g/dl (32.0-36.5); MEAN CORPUSCULAR VOLUME 77.8 fl (80.0-96.0); PLATELET COUNT, AUTOMATED 324 10^3/uL (150-450); RED BLOOD COUNT 4.19 10^6/uL (4.00-5.40); WHITE BLOOD COUNT 13.8 10^3/uL (4.0-10.0)
[2022-07-04 06:43] LABS: ALBUMIN 2.1 G/DL (3.2-5.2); ALKALINE PHOSPHATASE 123 U/L (46-116); ALT/SGPT 222 U/L (7.0-40); AST/SGOT 149 U/L (<34); BILIRUBIN,TOTAL 0.9 MG/DL (0.3-1.2); BLOOD UREA NITROGEN 9 MG/DL (9-23); CALCIUM LEVEL 7.7 MG/DL (8.3-10.6); CARBON DIOXIDE LEVEL 27 MMOL/L (20-31); CHLORIDE LEVEL 108 MMOL/L (98-107); CREATININE FOR GFR 0.73 MG/DL (0.55-1.30); GLOMERULAR FILTRATION RATE > 60.0 (>39); GLUCOSE, FASTING 93 MG/DL (74-106); POTASSIUM SERUM 3.4 MMOL/L (3.5-5.1); SODIUM LEVEL 143 MMOL/L (136-145); TOTAL PROTEIN 5.1 G/DL (5.7-8.2)
[2022-07-04] MEDS: INSULIN LISPRO (NovoLOG) PER UNIT SC SCH ×4 (07:30→20:25)
[2022-07-04] MEDS: LEVALBUTEROL 1.25MG 0.5ML CONCENTRATE NEB NEB SCH ×2 (08:00→20:00)
[2022-07-04] MEDS: NS 1,000 ML IV SCH ×2 (08:45→21:56)
[2022-07-04] MEDS ORDERED: POTASSIUM CHLORIDE 10MEQ SR TABLET PO ONE (09:20)
[2022-07-04] MEDS: ENOXAPARIN 40MG/0.4ML SYRINGE (J1650 PER 10MG) SC SCH (09:41)
[2022-07-04] MEDS: LEVEMIR (INSULIN DETEMIR) 1 UNITS/0.01ML SC SCH ×2 (09:41→20:25)
[2022-07-04] MEDS: LABETALOL 100MG TAB PO SCH ×2 (09:42→20:24)
[2022-07-04] MEDS: PARoxetine 20MG TABLET PO SCH (09:42)
[2022-07-04] MEDS: LACTOBACILLUS ACIDOPHILUS CAP (BACID) PO SCH ×2 (09:42→18:15)
[2022-07-04] MEDS: POTASSIUM CHLORIDE 10MEQ SR TABLET PO SCH (09:43)
[2022-07-04] MEDS: QUINAPRIL 20 MG TAB PO SCH (09:43)
[2022-07-04 10:25] VITALS: O2SAT 97
[2022-07-04 14:00] VITALS: BP 135/62
[2022-07-04 19:33] VITALS: BP 156/68
[2022-07-04] MEDS: hydrOXYzine 50 MG TAB PO SCH (20:24)
[2022-07-04] MEDS: QUEtiapine FUMARATE 50MG TAB PO SCH (20:24)
[2022-07-05 05:43] VITALS: BP 153/66
[2022-07-05] MEDS: LevoFLOXacin 750 MG TABLET PO SCH (05:48)
[2022-07-05] MEDS: LEVOTHYROXINE 75MCG TABLET (0.075MG) PO SCH (05:48)
[2022-07-05 06:13] LABS: HEMOGLOBIN 11.7 g/dl (12.0-15.5); MEAN CORPUSCULAR HEMOGLOBIN 24.9 pg (27.0-33.0); MEAN CORPUSCULAR HGB CONC 31.6 g/dl (32.0-36.5); MEAN CORPUSCULAR VOLUME 78.7 fl (80.0-96.0); PLATELET COUNT, AUTOMATED 408 10^3/uL (150-450); WHITE BLOOD COUNT 15.9 10^3/uL (4.0-10.0)
[2022-07-05 06:44] LABS: ALBUMIN 2.3 G/DL (3.2-5.2); ALKALINE PHOSPHATASE 130 U/L (46-116); ALT/SGPT 178 U/L (7.0-40); AST/SGOT 91 U/L (<34); BILIRUBIN,TOTAL 0.9 MG/DL (0.3-1.2); BLOOD UREA NITROGEN 7 MG/DL (9-23); CALCIUM LEVEL 8.2 MG/DL (8.3-10.6); CARBON DIOXIDE LEVEL 30 MMOL/L (20-31); CHLORIDE LEVEL 105 MMOL/L (98-107); CREATININE FOR GFR 0.66 MG/DL (0.55-1.30); GLOMERULAR FILTRATION RATE > 60.0 (>39); GLUCOSE, FASTING 60 MG/DL (74-106); POTASSIUM SERUM 3.5 MMOL/L (3.5-5.1); SODIUM LEVEL 143 MMOL/L (136-145); TOTAL PROTEIN 5.9 G/DL (5.7-8.2)
[2022-07-05] MEDS: LEVALBUTEROL 1.25MG 0.5ML CONCENTRATE NEB NEB SCH ×2 (07:23→20:00)
[2022-07-05] MEDS: INSULIN LISPRO (NovoLOG) PER UNIT SC SCH ×4 (07:30→20:47)
[2022-07-05] MEDS: LEVEMIR (INSULIN DETEMIR) 1 UNITS/0.01ML SC SCH (07:36)
[2022-07-05] MEDS: LACTOBACILLUS ACIDOPHILUS CAP (BACID) PO SCH ×2 (08:33→17:33)
[2022-07-05] MEDS: POTASSIUM CHLORIDE 10MEQ SR TABLET PO SCH (08:33)
[2022-07-05] MEDS: LABETALOL 100MG TAB PO SCH ×2 (08:34→20:02)
[2022-07-05] MEDS: QUINAPRIL 20 MG TAB PO SCH (08:34)
[2022-07-05] MEDS: PARoxetine 20MG TABLET PO SCH (08:34)
[2022-07-05] MEDS: ENOXAPARIN 40MG/0.4ML SYRINGE (J1650 PER 10MG) SC SCH (08:35)
[2022-07-05 10:38] VITALS: O2SAT 93
[2022-07-05 14:00] VITALS: BP 146/63
[2022-07-05] MEDS: hydrOXYzine 50 MG TAB PO SCH (20:00)
[2022-07-05] MEDS: QUEtiapine FUMARATE 50MG TAB PO SCH (20:02)
[2022-07-05 20:39] VITALS: BP 155/70
[2022-07-05] MEDS ORDERED: LEVEMIR (INSULIN DETEMIR) 1 UNITS/0.01ML SC SCH (21:00)
[2022-07-06] MEDS: LEVOTHYROXINE 75MCG TABLET (0.075MG) PO SCH (05:19)
[2022-07-06] MEDS: LevoFLOXacin 750 MG TABLET PO SCH (05:19)
[2022-07-06 06:03] VITALS: BP 139/54
[2022-07-06 06:10] LABS: HEMOGLOBIN 10.7 g/dl (12.0-15.5); MEAN CORPUSCULAR HEMOGLOBIN 24.8 pg (27.0-33.0); MEAN CORPUSCULAR HGB CONC 31.5 g/dl (32.0-36.5); MEAN CORPUSCULAR VOLUME 78.9 fl (80.0-96.0); PLATELET COUNT, AUTOMATED 434 10^3/uL (150-450); RED BLOOD COUNT 4.31 10^6/uL (4.00-5.40); WHITE BLOOD COUNT 14.1 10^3/uL (4.0-10.0)
[2022-07-06 06:30] LABS: BLOOD UREA NITROGEN 8 MG/DL (9-23); CALCIUM LEVEL 8.4 MG/DL (8.3-10.6); CARBON DIOXIDE LEVEL 29 MMOL/L (20-31); CHLORIDE LEVEL 105 MMOL/L (98-107); CREATININE FOR GFR 0.76 MG/DL (0.55-1.30); GLOMERULAR FILTRATION RATE > 60.0 (>39); GLUCOSE, FASTING 138 MG/DL (74-106); POTASSIUM SERUM 3.7 MMOL/L (3.5-5.1); SODIUM LEVEL 143 MMOL/L (136-145)
[2022-07-06 07:12] LABS: BASOPHILS 1 % (0-1); EOSINOPHILS 1 % (0-3); LYMPHOCYTES 11 % (16-44); METAMYELOCYTES 1 % (0-0); MONOCYTES 6 % (0-5); MYELOCYTES 4 % (0-0); NEUTROPHILS 76 % (28-66)
[2022-07-06 07:13] LABS: ANISOCYTOSIS 1+; HYPOCHROMASIA 1+; MICROCYTOSIS 1+
[2022-07-06 07:14] LABS: PLATELET ESTIMATE NORMAL (NORMAL)
[2022-07-06] MEDS: LEVALBUTEROL 1.25MG 0.5ML CONCENTRATE NEB NEB SCH (07:42)
[2022-07-06] MEDS: LACTOBACILLUS ACIDOPHILUS CAP (BACID) PO SCH (08:28)
[2022-07-06] MEDS: INSULIN LISPRO (NovoLOG) PER UNIT SC SCH ×2 (08:28→12:12)
[2022-07-06] MEDS: POTASSIUM CHLORIDE 10MEQ SR TABLET PO SCH (08:29)
[2022-07-06] MEDS: PARoxetine 20MG TABLET PO SCH (08:29)
[2022-07-06 08:33] VITALS: BP 152/75
[2022-07-06] MEDS: LABETALOL 100MG TAB PO SCH (08:33)
[2022-07-06] MEDS: ENOXAPARIN 40MG/0.4ML SYRINGE (J1650 PER 10MG) SC SCH (08:33)
[2022-07-06] MEDS: QUINAPRIL 20 MG TAB PO SCH (08:33)
[2022-07-06] MEDS ORDERED: LEVE1INJ5 SC (10:17)
[2022-07-06] MEDS ORDERED: LEVO1TAB40 PO (10:17)
== END 2022-07-06 12:24 | disposition home or self-care (01) | DRG 871 ==
LOC: M ED 11:44 → M ED INP 21:12 → M PCU 22:48 → M MSPAV 07-01 17:54
PROVIDERS: ADMIT Family Medicine; ATTEND Internal Medicine
DX: A41.9 Sepsis, unspecified organism (principal); J18.9 Pneumonia, unspecified organism; A48.1 Legionnaires' disease; J90 Pleural effusion, not elsewhere classified; M62.82 Rhabdomyolysis; E87.1 Hypo-osmolality and hyponatremia; N39.0 Urinary tract infection, site not specified; F41.9 Anxiety disorder, unspecified; E78.00 Pure hypercholesterolemia, unspecified; E03.9 Hypothyroidism, unspecified; E11.9 Type 2 diabetes mellitus without complications; F32.A Depression, unspecified; E87.6 Hypokalemia; E86.0 Dehydration; K74.60 Unspecified cirrhosis of liver; B96.20 Unspecified Escherichia coli [E. coli] as the cause of diseases classified elsewhere; I10 Essential (primary) hypertension; R74.01 Elevation of levels of liver transaminase levels; Z90.49 Acquired absence of other specified parts of digestive tract; Z79.4 Long term (current) use of insulin; Z79.890 Hormone replacement therapy; Z79.899 Other long term (current) drug therapy

== ENCOUNTER 2024-01-08 16:24 | Emergency (ER) | payer MEDICARE, OTHER ==
[~2024-01-08] VITALS: Ht 154.9 cm; Wt 89.5 kg
[~2024-01-08 16:24] MED LIST changes: +HYDR-3363 PO; +INSU100I6 SC; +JARD1TAB3 PO; -LEVE1INJ5 SC; +LEVO1TAB40 PO; +LEVO75TA4 PO; +LISI20TA33 PO
[2024-01-08 17:35] LABS: ALKALINE PHOSPHATASE 90 U/L (46-116); ALT/SGPT 26 U/L (7.0-40); AST/SGOT 11 U/L (<34); BILIRUBIN,DIRECT 0.5 MG/DL (<0.4); BILIRUBIN,TOTAL 1.5 MG/DL (0.3-1.2); BLOOD UREA NITROGEN 16 MG/DL (9-23); CALCIUM LEVEL 9.4 MG/DL (8.3-10.6); CARBON DIOXIDE LEVEL 23 MMOL/L (20-31); CHLORIDE LEVEL 107 MMOL/L (98-107); CREATININE FOR GFR 0.83 MG/DL (0.55-1.30); GLOMERULAR FILTRATION RATE > 60.0 (>39); GLUCOSE, FASTING 223 MG/DL (74-106); POTASSIUM SERUM 4.2 MMOL/L (3.5-5.1); SODIUM LEVEL 141 MMOL/L (136-145); TOTAL PROTEIN 6.7 G/DL (5.7-8.2)
[2024-01-08 17:37] LABS: THYROID STIMULATING HORMONE 3.335 uIU/ML (0.55-4.78)
[2024-01-08 17:42] LABS: BASO # 0.1 10^3/uL (0.0-0.2); BASO % 0.6 % (0.0-1.0); EOS # 0.2 10^3/uL (0.0-0.5); EOS % 1.9 % (0.0-3.0); HEMATOCRIT 40.5 % (36.0-47.0); HEMOGLOBIN 13.4 g/dl (12.0-15.5); LYMPH # 2.3 10^3/uL (1.5-5.0); LYMPH % 27.1 % (24.0-44.0); MEAN CORPUSCULAR HEMOGLOBIN 26.9 pg (27.0-33.0); MEAN CORPUSCULAR HGB CONC 33.1 g/dl (32.0-36.5); MEAN CORPUSCULAR VOLUME 81.2 fl (80.0-96.0); MONO # 0.6 10^3/uL (0.0-0.8); MONO % 7.7 % (2.0-8.0); NEUTROPHILS # 5.2 10^3/uL (1.5-8.5); NEUTROPHILS % 62.5 % (36.0-66.0); PLATELET COUNT, AUTOMATED 253 10^3/uL (150-450); RED BLOOD COUNT 4.99 10^6/uL (4.00-5.40); WHITE BLOOD COUNT 8.3 10^3/uL (4.0-10.0)
[2024-01-08 18:14] LABS: OSMOLALITY SERUM 303 MOSM/KG (280-301)
[2024-01-08 19:01] VITALS: BP 121/60; TEMP 98.3; O2SAT 95
[2024-01-08 19:29] LABS: FOLATE 19.52 NG/ML (>5.4)
[2024-01-08 19:34] LABS: VITAMIN B12 LEVEL 336 PG/ML (211-911)
[2024-01-11 16:02] LABS: ANA SCREEN, IFA NEGATIVE (NEGATIVE)
== END 2024-01-08 19:03 | disposition home or self-care (01) ==
LOC: M ED 16:24
DX: R41.0 Disorientation, unspecified (principal); I25.2 Old myocardial infarction; E11.9 Type 2 diabetes mellitus without complications; I10 Essential (primary) hypertension; E03.9 Hypothyroidism, unspecified; Z79.4 Long term (current) use of insulin; Z79.84 Long term (current) use of oral hypoglycemic drugs; Z79.899 Other long term (current) drug therapy

== ENCOUNTER → 2024-02-15 | Outpatient (REF) | payer MEDICARE ==
[2024-02-15 18:47] LABS: APPEARANCE, URINE TURBID (CLEAR); BACTERIA, URINE AUTO NEGATIVE (NEGATIVE); BILIRUBIN, URINE AUTO 1+ (NEGATIVE); BLOOD, URINE BLOOD NEGATIVE (NEGATIVE); COLOR, URINE AMBER (YELLOW); GLUCOSE, URINE (UA) AUTO 1+ mg/dL (NEGATIVE); KETONE, URINE AUTO TRACE mg/dL (NEGATIVE); LEUKOCYTE ESTERASE, URINE AUTO 1+ (NEGATIVE); MUCUS, URINE SMALL (NEGATIVE); NITRITE, URINE AUTO NEGATIVE (NEGATIVE); PROTEIN, URINE AUTO 2+ mg/dL (NEGATIVE); RBC, URINE AUTO 0 /HPF (0-3); SPECIFIC GRAVITY URINE AUTO 1.028 (1.002-1.035); SQUAMOUS EPITHELIAL CELL UR AU 27 /HPF (0-6); WBC, URINE AUTO 19 /HPF (0-3)
== END ==
LOC: M LABSMT 13:52
PROVIDERS: ATTEND Urology
DX: N39.0 Urinary tract infection, site not specified (principal)